=== PATIENT | female | born 1940 | race Two or more races ===

== ENCOUNTER → 2025-01-07 | Outpatient (CLI) | payer MEDICARE, BC, OTHER, SELFPAY ==
--- NOTE | 2025-01-07 13:20 | XR_ITS ---
Examination: Bone densitometry Date and time of exam:January 07, 2025 1339 hours INDICATIONS: Menopause age 47 postmenopausal patella left wrist foot fracture Technique: Lumbar spine and hip total bone mineralization values of an calculated. Peak reference and age match control results have been displayed. Findings: Lumbar spine total bone mineralization is0.889 gm/cm2. This is 1.4 standard deviations below peak reference. This is 1.3 standard deviations above age-matched controls. Hip total bone mineralization is 0.862 gm/cm2 This is 0.7 standard deviations below peak reference. This is 1.4 standard deviations above age-matched controls Impression: There is osteopenia based on lumbar spine measurements. There is osteopenia based on hip measurements Lumbar mineralization is increased 3.3% compared with November 08, 2021 Hip mineralization is increased 3.4% compared with November 18, 2021
== END | disposition home or self-care (01) ==
LOC: CDIM 13:14
PROVIDERS: Referring Provider Family Medicine; Visit Provider Family Medicine
DX: M85.89 Other specified disorders of bone density and structure, multiple sites (principal)
CPT/HCPCS: 77080

== ENCOUNTER → 2025-05-03 | Outpatient (CLI) | payer MEDICARE, BC, OTHER, SELFPAY ==
--- NOTE | 2025-05-03 12:57 | XR_ITS ---
Examination: PA lateral chest 2 views TECHNIQUE: Upright PA lateral chest 2 views Date and time: May 03, 2025 1304 hours Comparison July 27, 2024 INDICATIONS: Coughing shortness of breath beginning 3 weeks ago. FINDINGS: Mild scarring versus pneumonia in the lingular segment No significant cardiac enlargement No pulmonary edema IMPRESSION: Scarring versus mild pneumonia in the lingular segment left upper lobe, clinical correlation advised
== END | disposition home or self-care (01) ==
LOC: CDIM 12:52
PROVIDERS: PCP Family Medicine; Referring Provider Allergy & Immunology; Visit Provider Allergy & Immunology
DX: R91.8 Other nonspecific abnormal finding of lung field (principal); J45.50 Severe persistent asthma, uncomplicated
CPT/HCPCS: 71046

== ENCOUNTER → 2025-08-02 | Outpatient (CLI) | payer MEDICARE, BC, OTHER, SELFPAY ==
[2025-08-02 14:30] LABS: Basophils # (Auto) 0.1 Thou/mm3 (0.0-0.2); Basophils % (Auto) 1 % (0-2.5); Eosinophils # (Auto) 0.2 Thou/mm3 (0.0-0.5); Eosinophils % (Auto) 2 % (0-10); Hematocrit 45.5 % (36.0-46.0); Hemoglobin 14.7 g/dL (12.0-16.0); Immature Granulocytes Auto 0.03 Thou/mm3 (0.00-0.00); Lymphocytes # (Auto) 1.7 Thou/mm3 (1.0-4.8); Lymphocytes % (Auto) 20 % (10-50); Mean Corpuscular HGB Conc 32.3 g/dl (31.0-37.0); Mean Corpuscular Hemoglobin 31.3 pg (25.0-35.0); Mean Corpuscular Volume 97 fL (80-100); Monocytes # (Auto) 0.9 Thou/mm3 (0.0-0.8); Monocytes % (Auto) 10 % (0-12); Neutrophils # (Auto) 5.8 Thou/mm3 (1.8-7.7); Neutrophils % (Auto) 68 % (37-80); Nucleated Red Blood Cell # 0.00 Thou/mm3 (0.00-0.00); Nucleated Red Blood Cell % 0 /100 WBC (0); Platelet Count 222 Thou/mm3 (140-440); RDW Standard Deviation 51.3 fL (36.4-46.3); Red Blood Count 4.69 Miln/mm3 (4.00-5.20); White Blood Count 8.5 Thou/mm3 (3.6-11.0)
--- NOTE | 2025-08-02 14:30 | XR_ITS ---
Examination: Abdomen sonogram, Limited Date and time of exam: August 02, 2025 1407 hours INDICATIONS: Abdominal pain after edema beginning one year ago Technique: Real-time olson scale transabdominal sonographic images of the upper abdomen obtained. Findings: Normal gallbladder Normal common bile duct 0.2 cm Pancreatic head 2.4 cm Liver 15.6 cm smooth contour Normal hepatopedal portal venous flow Patent IVC IMPRESSION: Negative study
[2025-08-02 15:44] LABS: Alanine Aminotransferase 18 U/L (10-49); Albumin, Serum 4.6 gm/dL (3.4-4.8); Albumin/Globulin Ratio 2.1 (1.2-2.2); Alkaline Phosphatase 93 U/L (46-116); Anion Gap 10 (7-16); Aspartate Amino Transferase 21 U/L (0-34); BUN/Creatinine Ratio 19 Ratio (12-20); Bilirubin,Total 0.4 mg/dL (0.3-1.2); Blood Urea Nitrogen 13 mg/dL (9-23); Calcium 10.7 mg/dL (8.3-10.6); Calcium (Corrected) 10.7 mg/dL (8.5-10.1); Carbon Dioxide 30.1 mMol/L (20.0-31.0); Cardiac Risk Estimate 3.4 RATIO (3.7-5.6); Chloride 105 mMol/L (98-107); Cholesterol 173 mg/dL (132-200); Creatinine (Component) 0.7 mg/dL (0.6-1.3); Globulin 2.2 gm/dL (2.3-3.5); Glucose 90 mg/dL (74-106); HDL Cholesterol 51 mg/dL (40-60); LDL Cholesterol,Calculated 70 mg/dL (0-130); Osmolality,Calculated 288 (275-295); Potassium 4.7 mMol/L (3.4-5.1); Sodium 145 mMol/L (136-145); Total Protein 6.8 gm/dL (5.7-8.2); Triglycerides 259 mg/dL (30-150); eGFR > 60 See Note
[2025-08-02 15:45] LABS: Thyroid Stimulating Hormone 2.86 uIU/mL (0.55-4.78)
== END | disposition home or self-care (01) ==
LOC: CDIM 13:23
PROVIDERS: PCP Family Medicine; Referring Provider Specialist; Visit Provider Specialist
DX: R14.0 Abdominal distension (gaseous) (principal); R10.32 Left lower quadrant pain; R11.0 Nausea; R10.13 Epigastric pain; I10 Essential (primary) hypertension
CPT/HCPCS: 36415; 76705; 80053; 80061; 84443; 85025

== ENCOUNTER 2025-08-05 10:10 | Day surgery (SDC) | payer MEDICARE, BC, OTHER, SELFPAY ==
[2025-08-04 13:40] VITALS: BMI 32.5
[2025-08-05] VITALS (8 sets, daily range): BP systolic 130–176; BP diastolic 59–84; PULSE 66–79; RESP 14–24; TEMP 36.3–36.6; O2SAT 90–100; BMI 31.9
[2025-08-05] MEDS: BENZOCAINE 20% (Hurricaine) SPRAY 1 DOSE TOP (11:55)
[2025-08-05] MEDS: SODIUM CHLORIDE 0.9% 500 ML 500 ML 20 ML IV (11:55)
[2025-08-05] MEDS: fentaNYL CIT INJ 50 mCg/ML AMP 2ML (ASD USE ONLY) IVP (11:58)
[2025-08-05] MEDS: MIDAZOLAM INJ 1 MG/ML VIAL 2 ML (ASD USE ONLY) 2 MG IVP (11:58)
== END 2025-08-05 12:44 | disposition home or self-care (01) ==
PROVIDERS: PCP Family Medicine; Referring Provider Specialist; Visit Provider Specialist
PROC: (CPT 43239; principal; 2025-08-05 13:00)
DX: K29.50 Unspecified chronic gastritis without bleeding (principal); K20.90 Esophagitis, unspecified without bleeding; M32.9 Systemic lupus erythematosus, unspecified; I10 Essential (primary) hypertension; Z79.899 Other long term (current) drug therapy
CPT/HCPCS: 43239; A4649; J2250; J3010; J7999; A9270